=== PATIENT | male | born 1975 | race American Indian/Alaskan Native ===

== ENCOUNTER 2017-05-10 04:31 | Inpatient (IN) | payer OTHER ==
[2017-05-10 05:21] LABS: Basophils % (Auto) 1.2 % (0.0-1.8); Eosinophils % (Auto) 3.2 % (0.0-4.3); Hematocrit 41.7 % (35.5-45.6); Hemoglobin 14.2 gm/dl (11.8-15.2); Mean Corpuscular HGB Conc 34 % (32-34); Mean Corpuscular Hemoglobin 32 pg (28-32); Mean Corpuscular Volume 94 fl (84-94); Platelet Count 250 K/mm3 (140-440); Red Blood Count 4.46 M/mm3 (3.65-5.03); Red Cell Distribution Width 13.7 % (13.2-15.2); White Blood Count 8.5 K/mm3 (4.5-11.0)
[2017-05-10 05:33] LABS: Anion Gap 18 mmol/L; BUN/Creatinine Ratio 13; Blood Urea Nitrogen 15 mg/dL (9-20); Carbon Dioxide 25 mmol/L (22-30); Chloride 101.3 mmol/L (98-107); Glucose 91 mg/dL (75-100); Potassium 4.3 mmol/L (3.6-5.0); Sodium 140 mmol/L (137-145)
[2017-05-10] MEDS ORDERED: NITRO-BID 2% TP ONE (09:49)
[2017-05-10] MEDS ORDERED: ASPIRIN PO ONE (09:49)
[2017-05-10] MEDS ORDERED: SUBLIMAZE IV ONE (09:49)
[2017-05-10] MEDS ORDERED: ZOFRAN IV ONE (09:49)
--- NOTE | 2017-05-10 10:08 | Emergency Department Report ---
HPI - General Chief Complaint: Chest Pain Time Seen by Provider: 05/10/17 09:38 - HPI HPI: Room 24 The patient is a 41-year-old male presenting with a chief complaint of chest pain. The patient states for the past 3 days he has had intermittent chest pain has been sharp in nature and associated with shortness of breath. Patient denies nausea/vomiting or diaphoresis. Patient denies any recent flights or long car trips. The patient currently gives his pain score 7/10. Patient does admit to pleurisy. The patient states his last stress test occurred October 2016 was normal. The patient states he's never had a cardiac catheterization Location: Chest Duration: Intermittent 3 days Quality: Sharp Severity: 7/10 Modifying factors: [see above] Context: [see above] Mode of transportation: [not driving] ED Past Medical Hx - Past Medical History Previous Medical History?: No - Surgical History Past Surgical History?: No - Family History Family history: no significant - Social History Smoking Status: Current Every Day Smoker (1/2 pack per day) Substance Use Type: None (denies illicit drug use) - Medications Home Medications: Home Medications Medication Instructions Recorded Confirmed Last Taken Type No Known Home Medications [No 05/10/17 05/10/17 Unknown History Reported Home Medications] ED Review of Systems ROS: Stated complaint: CHEST PAIN X 2 DAYS Other details as noted in HPI Comment: All other systems reviewed and negative Constitutional: denies: chills, fever Eyes: denies: eye pain, eye discharge, vision change ENT: denies: ear pain, throat pain Respiratory: shortness of breath Cardiovascular: chest pain Endocrine: no symptoms reported Gastrointestinal: denies: abdominal pain, nausea, diarrhea Genitourinary: denies: urgency, dysuria Musculoskeletal: denies: back pain, joint swelling, arthralgia Skin: denies: rash, lesions Neurological: denies: headache, weakness, paresthesias Psychiatric: denies: anxiety, depression Hematological/Lymphatic: denies: easy bleeding, easy bruising Physical Exam - Physical Exam Vital Signs: Vital Signs 05/10/17 05/10/17 04:51 08:25 Temperature 98.6 F 98.5 F Pulse Rate 83 68 Respiratory 16 22 Rate Blood Pressure 146/92 Blood Pressure 120/79 [Left] O2 Sat by Pulse 100 99 Oximetry Physical Exam: GENERAL: The patient is well-developed well-nourished male lying on stretcher not appearing to be in acute distress. [] HEENT: Normocephalic. Atraumatic. Extraocular motions are intact. Patient has moist mucous membranes. NECK: Supple. Trachea midline CHEST/LUNGS: Clear to auscultation. There is no respiratory distress noted. HEART/CARDIOVASCULAR: Regular. There is no tachycardia. There is no gallop rub or murmur. ABDOMEN: Abdomen is soft, nontender. Patient has normal bowel sounds. There is no abdominal distention. SKIN: There is no rash. There is no edema. There is no diaphoresis. NEURO: The patient is awake, alert, and oriented. The patient is cooperative. The patient has normal speech MUSCULOSKELETAL: There is no evidence of acute injury. ED Course Vital Signs 05/10/17 05/10/17 04:51 08:25 Temperature 98.6 F 98.5 F Pulse Rate 83 68 Respiratory 16 22 Rate Blood Pressure 146/92 Blood Pressure 120/79 [Left] O2 Sat by Pulse 100 99 Oximetry ED Medical Decision Making - Lab Data Result diagrams: 05/10/17 04:58 05/10/17 04:58 Laboratory Tests 05/10/17 05/10/17 05/10/17 04:58 04:58 07:37 WBC 8.5 RBC 4.46 Hgb 14.2 Hct 41.7 MCV 94 MCH 32 MCHC 34 RDW 13.7 Plt Count 250 Lymph % (Auto) 33.3 Bremer % (Auto) 11.5 H Eos % (Auto) 3.2 Baso % (Auto) 1.2 Lymph # 2.8 Bremer # 1.0 H Eos # 0.3 Baso # 0.1 Seg Neutrophils % 50.8 Seg Neutrophils # 4.3 Sodium 140 Potassium 4.3 Chloride 101.3 Carbon Dioxide 25 Anion Gap 18 BUN 15 Creatinine 1.2 Estimated GFR > 60 BUN/Creatinine Ratio 13 Glucose 91 Calcium 9.0 Troponin T < 0.010 < 0.010 - EKG Data -: EKG Interpreted by Id EKG shows normal: sinus rhythm Rate: normal - EKG Data When compared to previous EKG there are: previous EKG unavailable Interpretation: other (no ischemic changes seen) - Radiology Data Radiology results: report reviewed (CT chest), image reviewed (CT chest) CTA chest: History: Pleurisy, chest pain. Findings: No evidence of aneurysm or pulmonary embolism. No mediastinal mass or adenopathy. No pleural pericardial effusion. Scattered faint infiltrate is noted in the left lower lobe. No mass. Impression: No evidence of pulmonary embolism. Scattered faint infiltrates left lower lobe probably suggestive of early pneumonitis. Transcribed By: PTP Dictated By: RAMIRO PHILLIPS MD Electronically Authenticated By: RAMIRO PHILLIPS MD Signed Date/Time: 05/10/17 1051 - Differential Diagnosis ACS, GERD, pericarditis, pneumonitis Critical care attestation.: If time is entered above; I have spent that time in minutes in the direct care of this critically ill patient, excluding procedure time. ED Disposition Clinical Impression: Chest pain Disposition: DC-09 OP ADMIT IP TO THIS HOSP Is pt being admited?: Yes Does the pt Need Aspirin: Yes Condition: Fair Instructions: Chest Pain (ED) Referrals: PRIMARY CAREMD [Primary Care Provider] - 3-5 Days Time of Disposition: 11:02 (hospitalist paged)
--- NOTE | 2017-05-10 10:56 | Cat Scan Report ---
CTA chest: History: Pleurisy, chest pain. Findings: No evidence of aneurysm or pulmonary embolism. No mediastinal mass or adenopathy. No pleural pericardial effusion. Scattered faint infiltrate is noted in the left lower lobe. No mass. Impression: No evidence of pulmonary embolism. Scattered faint infiltrates left lower lobe probably suggestive of early pneumonitis.
[2017-05-10] MEDS: DILAUDID IV PRN (16:23)
--- NOTE | 2017-05-10 23:43 | History and Physical Report ---
History of Present Illness Date of examination: 05/10/17 Date of admission: 05/10/17 11:04 Chief complaint: CC Chest pain for 3 days -Imtermittent History of present illness: ZACK The patient is a 41-year-old male presenting with a chief complaint of chest pain. The patient states for the past 3 days he has had intermittent chest pain has been sharp in nature and associated with shortness of breath. Patient denies nausea/vomiting or diaphoresis. Patient denies any recent flights or long car trips. The patient currently gives his pain score 7/10. Patient does admit to pleurisy. The patient states his last stress test occurred October 2016 was normal. The patient states he's never had a cardiac catheterization - Past Medical History Previous Medical History?: No - Surgical History Past Surgical History?: No - Family History Family history: no significant - Social History Smoking Status: Current Every Day Smoker (1/2 pack per day) Substance Use Type: None (denies illicit drug use) - Medications Home Medications: Home Medications Medication Instructions Recorded Confirmed Last Taken Type No Known Home Medications [No 05/10/17 05/10/17 Unknown History Reported Home Medications] Review of Systems Stated complaint: CHEST PAIN X 2 DAYS Other details as noted in HPI Comment: All other systems reviewed and negative Constitutional: denies: chills, fever Eyes: denies: eye pain, eye discharge, vision change ENT: denies: ear pain, throat pain Respiratory: shortness of breath Cardiovascular: chest pain Endocrine: no symptoms reported Gastrointestinal: denies: abdominal pain, nausea, diarrhea Genitourinary: denies: urgency, dysuria Musculoskeletal: denies: back pain, joint swelling, arthralgia Skin: denies: rash, lesions Neurological: denies: headache, weakness, paresthesias Psychiatric: denies: anxiety, depression Hematological/Lymphatic: denies: easy bleeding, easy bruising Medications and Allergies Allergies Allergy/AdvReac Type Severity Reaction Status Date / Time No Known Allergies Allergy Unverified 05/10/17 04:55 Home Medications Medication Instructions Recorded Confirmed Last Taken Type No Known Home Medications [No 05/10/17 05/10/17 Unknown History Reported Home Medications] Active Meds: Active Medications Hydromorphone HCl (Dilaudid) 0.5 mg IV Q3H PRN PRN Reason: Pain , Severe (7-10) Last Admin: 05/10/17 16:23 Dose: 0.5 mg Review of Systems All systems: negative Exam - Constitutional Vitals: Temp Pulse Resp BP Pulse Ox 98.4 F 81 18 136/77 100 05/10/17 19:30 05/10/17 19:30 05/10/17 19:30 05/10/17 19:30 05/10/17 22:38 General appearance: Present: no acute distress, well-nourished - EENT Eyes: Present: PERRL ENT: hearing intact, clear oral mucosa - Neck Neck: Present: supple, normal ROM - Respiratory Respiratory effort: normal Respiratory: bilateral: CTA - Cardiovascular Heart rate: 80 Rhythm: regular Heart Sounds: Present: S1 & S2. Absent: rub, click - Extremities Extremities: no ischemia, pulses intact, pulses symmetrical, No edema Peripheral Pulses: within normal limits - Abdominal General gastrointestinal: Present: soft, non-tender, non-distended, normal bowel sounds Male genitourinary: Present: normal - Integumentary Integumentary: Present: clear, warm, dry - Musculoskeletal Musculoskeletal: gait normal, strength equal bilaterally - Psychiatric Psychiatric: appropriate mood/affect, intact judgment & insight - Neurologic Neurologic: CNII-XII intact, moves all extremities - Allied Health Allied health notes reviewed: nursing, case management Results - Labs CBC & Chem 7: 05/10/17 04:58 05/10/17 04:58 Labs: Laboratory Last Values WBC 8.5 K/mm3 (4.5-11.0) 05/10/17 04:58 RBC 4.46 M/mm3 (3.65-5.03) 05/10/17 04:58 Hgb 14.2 gm/dl (11.8-15.2) 05/10/17 04:58 Hct 41.7 % (35.5-45.6) 05/10/17 04:58 MCV 94 fl (84-94) 05/10/17 04:58 MCH 32 pg (28-32) 05/10/17 04:58 MCHC 34 % (32-34) 05/10/17 04:58 RDW 13.7 % (13.2-15.2) 05/10/17 04:58 Plt Count 250 K/mm3 (140-440) 05/10/17 04:58 Lymph % (Auto) 33.3 % (13.4-35.0) 05/10/17 04:58 Randolph % (Auto) 11.5 % (0.0-7.3) H 05/10/17 04:58 Eos % (Auto) 3.2 % (0.0-4.3) 05/10/17 04:58 Baso % (Auto) 1.2 % (0.0-1.8) 05/10/17 04:58 Lymph # 2.8 K/mm3 (1.2-5.4) 05/10/17 04:58 Randolph # 1.0 K/mm3 (0.0-0.8) H 05/10/17 04:58 Eos # 0.3 K/mm3 (0.0-0.4) 05/10/17 04:58 Baso # 0.1 K/mm3 (0.0-0.1) 05/10/17 04:58 Seg Neutrophils % 50.8 % (40.0-70.0) 05/10/17 04:58 Seg Neutrophils # 4.3 K/mm3 (1.8-7.7) 05/10/17 04:58 Sodium 140 mmol/L (137-145) 05/10/17 04:58 Potassium 4.3 mmol/L (3.6-5.0) 05/10/17 04:58 Chloride 101.3 mmol/L (98-107) 05/10/17 04:58 Carbon Dioxide 25 mmol/L (22-30) 05/10/17 04:58 Anion Gap 18 mmol/L 05/10/17 04:58 BUN 15 mg/dL (9-20) 05/10/17 04:58 Creatinine 1.2 mg/dL (0.8-1.5) 05/10/17 04:58 Estimated GFR > 60 ml/min 05/10/17 04:58 BUN/Creatinine Ratio 13 % 05/10/17 04:58 Glucose 91 mg/dL (75-100) 05/10/17 04:58 Calcium 9.0 mg/dL (8.4-10.2) 05/10/17 04:58 Troponin T < 0.010 ng/mL (0.00-0.029) 05/10/17 10:50 - Imaging and Cardiology EKG: report reviewed (NSR 70 /min) Assessment and Plan Advance Directives: Yes (Full code) VTE prophylaxis?: Chemical Plan of care discussed with patient/family: Yes - Patient Problems (1) Chest pain Current Visit: Yes Status: Acute Qualifiers: Chest pain type: unspecified Qualified Code(s): R07.9 - Chest pain, unspecified Plan to address problem: Chest pain w/u Serial cardiac enzymes and Lexiscan Diff diac Esophagitis (2) DVT prophylaxis Current Visit: Yes Status: Acute Plan to address problem: On Lovenox
[2017-05-11 03:22] LABS: Creatine Kinase 336 units/L (55-170)
[2017-05-11 03:27] LABS: Creatine Kinase MB < 1.0 ng/mL (0.0-4.0)
[2017-05-11 07:33] LABS: Creatine Kinase 299 units/L (55-170)
[2017-05-11 07:34] LABS: Creatine Kinase MB < 1.0 ng/mL (0.0-4.0)
[2017-05-11] MEDS ORDERED: LEXISCAN IV ONE (08:04)
[2017-05-11] MEDS ORDERED: LEVAQUIN 750MG/150ML 750 MG/150 ML BAG IV SCH (14:00)
--- NOTE | 2017-05-11 14:15 | Discharge Summary ---
Providers - Providers Date of Admission: 05/10/17 11:04 Date of discharge: 05/11/17 Attending physician: STEFAN ELIAS Primary care physician: FRONT END SOFTWARE ENGINEER Hospitalization Condition: Fair Hospital course: Discharge diagnosis and management: / Chest pain Serial cardiac enzymes and Lexiscan was normal likely from LLL PNA placed on levaquin for 5 days / Obesity counseled with dietary recommendation Disposition: DC-01 TO HOME OR SELFCARE Time spent for discharge: 32 minutes Core Measure Documentation - Palliative Care Palliative Care/ Comfort Measures: Not Applicable - Core Measures Any of the following diagnoses?: none Exam - Constitutional Vitals: Temp Pulse Resp BP Pulse Ox 98.2 F 85 18 112/79 99 05/11/17 04:30 05/11/17 04:30 05/11/17 04:30 05/11/17 04:30 05/11/17 10:00 General appearance: Present: no acute distress, well-nourished - EENT Eyes: Present: PERRL ENT: hearing intact, clear oral mucosa - Neck Neck: Present: supple, normal ROM - Respiratory Respiratory effort: normal Respiratory: bilateral: CTA - Cardiovascular Heart Sounds: Present: S1 & S2. Absent: rub, click - Extremities Extremities: pulses symmetrical, No edema Peripheral Pulses: within normal limits - Abdominal General gastrointestinal: Present: soft, non-tender, non-distended, normal bowel sounds - Integumentary Integumentary: Present: clear, warm, dry - Musculoskeletal Musculoskeletal: gait normal, strength equal bilaterally - Psychiatric Psychiatric: appropriate mood/affect, intact judgment & insight - Neurologic Neurologic: CNII-XII intact, moves all extremities Plan Activity: advance as tolerated Weight Bearing Status: Weight Bear as Tolerated Diet: low fat, low salt Follow up with: PRIMARY CARE, [Primary Care Provider] - 3-5 Days Prescriptions: Levofloxacin [Levaquin] 750 mg PO QDAY #5 tablet
[2017-05-11 14:50] LABS: Creatine Kinase 262 units/L (55-170)
[2017-05-11 15:10] LABS: Creatine Kinase MB < 1.0 ng/mL (0.0-4.0)
[2017-05-11] MEDS: DILAUDID IV PRN ×2 (15:11)
[2017-05-11 18:58] VITALS: BP 117/68
== END 2017-05-11 17:25 | disposition home or self-care (01) | DRG 195 ==
LOC: ED 04:31 → 4A 11:04
PROVIDERS: ADMIT Internal Medicine; ATTEND Internal Medicine
DX: J18.1 Lobar pneumonia, unspecified organism (principal); F17.210 Nicotine dependence, cigarettes, uncomplicated; E66.9 Obesity, unspecified; Z68.31 Body mass index [BMI] 31.0-31.9, adult
CPT/HCPCS: 36415; 71275; 78452; 80048; 82550; 82553; 84484; 85025; 93005; 93010; 93017; 99406; A9502; J1170; J1956; J2405; J3010; Q9967